=== PATIENT | female | born 1955 | race Two or more races ===

== ENCOUNTER → 2025-02-23 | Day surgery (SDC) | payer OTHER, MEDICAID ==
[2025-02-20 10:05] LABS: Hematocrit 38.0 % (36.0-46.0); Hemoglobin 12.6 g/dL (12.2-16.2); Mean Corpuscular Hemoglobin 26.8 pg (28.0-32.0); Mean Corpuscular Volume 80.7 fL (80.0-100.0); Nucleated Red Blood Cells % 0.0 %
[2025-02-20 10:22] LABS: INR 0.95 (0.9-1.15); Partial Thromboplastin Time 24.3 SEC (24.5-34.5); Prothrombin Time 10.1 sec (9.3-11.8)
[2025-02-20 10:23] LABS: Alanine Aminotransferase 20 U/L (7-40); Alkaline Phosphatase 113 U/L (46-116); Anion Gap 9 (5-15); BUN/Creatinine Ratio 8.6 (10.0-20.0); Blood Urea Nitrogen 10 mg/dL (9-23); Carbon Dioxide 27 mmol/L (20-31); Chloride 106 mmol/L (98-107); Potassium 4.8 mmol/L (3.5-5.1); Sodium 142 mmol/L (136-145)
[2025-02-20 10:24] LABS: Calcium 10.5 mg/dL (8.7-10.4); Glucose 207 mg/dL (74-106); Total Protein 7.9 g/dL (5.7-8.2)
[2025-02-20 10:25] LABS: Bilirubin, Total 0.5 mg/dL (0.2-1.0)
[2025-02-20 10:30] LABS: Albumin 5.0 g/dL (3.2-4.8)
[2025-02-20 10:42] LABS: Urine Protein, UAD Negative (Negative)
[~2025-02-23] VITALS: Ht 162.6 cm; Wt 68.0 kg
[~2025-02-23] MED LIST: AMLO1TAB23 PO; ATOR20TA PO; CETI10TA2 PO; ERTU15TA PO; GLIP10TA9 PO; LIDOCAINE VISCOUS 2% 15ML UD ONE; METF-372 PO; MIDAZOLAM HCL 2MG/2ML 2ml VIAL (1mg/ml) ONE; PROPOFOL 10 MG/ML 20 ML IV ONE; fentaNYL CITRATE 100 MCG/2 ML VL ONE
--- NOTE | 2025-02-23 09:40 | DVHHP2 ---
GI H&P Pre-Op Assessment Date: 02/23/25 Chief complaint: Epigastric pain, nausea, vomiting, heartburn HPI: per clinic note Past medical history: per clinic note Past surgical history: per clinic note Family history: per clinic note Physical exam: General: NAD, AAOX3 HEENT: PERRL, no scleral icterus, normal hearing, gums without lesions or bleeding, oropharynx clear without erythema or exudate. Neck: Supple without enlargement of the thyroid, or lymphadenopathy. Chest: Normal size and shape, no tenderness, lung barnes clear to auscultation and percussion, nonlabored breathing. Heart: RRR, no murmur Abdomen: non-distended, no tenderness to palpation, +BS, no hepatosplenomegaly Extremities: no edema Neurological: CN II-XII intact, sensation intact in all extremities, 5+ strength in all extremities Skin: No rashes, No jaundice Assessment: - Epigastric pain, nausea, vomiting, heartburn Plan: - EGD - Risks (bleeding, infection, perforation, reaction to sedation medications and cardiopulmonary arrest) and benefit of the procedure were explained to patient. Patient agrees to undergo the procedure. DAMASO SAAVEDRA MD Feb 23, 2025 09:40
--- NOTE | 2025-02-23 09:41 | DVHOP2 ---
Operative Report DATE OF OPERATION: 02/23/25 PROCEDURE: Upper Endoscopy. PREOPERATIVE INDICATION: The patient is a 69 -year-old female undergoing endoscopy for epigastric pain, nausea, vomiting, heartburn. POSTOPERATIVE DIAGNOSES: 1. Slight duodenitis in the bulb 2. Mild gastritis PROCEDURE PERFORMED BY: Yonas Jamil SCOPE: Olympus videoendoscope. ASA CLASS: 3 PREOPERATIVE MEDICATIONS: MAC with Dr Cartwright PROCEDURE IN DETAIL: After obtaining an informed consent, the patient was placed on left lateral decubitus position. The patient was then sedated with the above medications. A bite block was placed between her teeth. The endoscope was then passed through the oropharynx, into the esophagus, and through the stomach and pylorus up to the second and third part of the duodenum. There was slight duodenitis in the bulb. There was mild gastritis. Gastric biopsies were obtained. The GE junction was normal appearance at 36 cm. The esophagus was normal in appearance. The endoscope was then withdrawn. The patient tolerated the procedure well without difficulty. COMPLICATIONS : None SPECIMENS: Gastric biopsies DISPOSITION: D/C to home PLAN: 1. Await for biopsy result 2. Continue with Protonix. YONAS JAMIL MD Feb 23, 2025 09:41
--- NOTE | 2025-02-23 09:43 | DVHDS2 ---
Physician Discharge Progress N Final Diagnosis: Duodenitis, gastritis Operations or Procedures: Operations or Procedures EGD with biopsy Condition on Discharge: Good Disposition: Home Discharge Instructions: Diet: Regular Activity: No Restrictions, As Tolerated Medications: Resume with previous home medications Follow Up Care: Discharge Statement: "Patient was advised to return to the ER or call 911 if any headaches, dizziness, shortness of breath, chest pain, abdominal pain, bleeding, fevers, or worsening of medical condition. Patient was counseled about treatment plan, medications, possible side effects, patientverbalized understanding. All questions were answered to the best of my ability. This discharge took greater then 30 minutes in planning, reviewing documenta tion, counseling the patient, and discussing with other team members." DAMASO SAAVEDRA MD Feb 23, 2025 09:43
[2025-02-23 09:45] VITALS: TEMP 97.2; O2SAT 100
[2025-02-23 10:00] VITALS: BP 112/56; PULSE 72; RESP 12; O2SAT 94
== END | disposition home or self-care (01) ==
LOC: GI 07:34
PROVIDERS: ATTEND Internal Medicine Gastroenterology
DX: K29.50 Unspecified chronic gastritis without bleeding (principal); B96.81 Helicobacter pylori [H. pylori] as the cause of diseases classified elsewhere; K29.80 Duodenitis without bleeding; R10.13 Epigastric pain; I10 Essential (primary) hypertension; E11.9 Type 2 diabetes mellitus without complications; Z79.899 Other long term (current) drug therapy; Z79.84 Long term (current) use of oral hypoglycemic drugs; R11.2 Nausea with vomiting, unspecified; Z98.890 Other specified postprocedural states
CPT/HCPCS: 36415; 43239; 80053; 81001; 82962; 85025; 85610; 85730; 88305; 88342; J1100; J2250; J2704; J3010; J7030